=== PATIENT | male | born 1970 ===

== ENCOUNTER 2023-06-11 17:42 | Emergency (ER) | payer OTHER ==
[2023-06-11] MEDS ORDERED: amLODIPine 5 MG Tab PO ONE ×2 (19:07→19:09)
[2023-06-11] MEDS ORDERED: Take Home: Lisinopril 10 MG, 4 Tab Pack PO ONE (19:08)
[2023-06-11] MEDS ORDERED: Lisinopril 5 MG Tab PO ONE (19:08)
== END 2023-06-11 19:53 | disposition home or self-care (01) ==
LOC: SUPCPDRO 17:42 → LL.ED 17:42
DX: S01.01XA Laceration without foreign body of scalp, initial encounter (principal); I10 Essential (primary) hypertension; I25.2 Old myocardial infarction; I25.10 Atherosclerotic heart disease of native coronary artery without angina pectoris; F17.210 Nicotine dependence, cigarettes, uncomplicated; Z79.899 Other long term (current) drug therapy; Z90.49 Acquired absence of other specified parts of digestive tract; X58.XXXA Exposure to other specified factors, initial encounter; Y92.69 Other specified industrial and construction area as the place of occurrence of the external cause; Y99.0 Civilian activity done for income or pay
CPT/HCPCS: 12001; 99283; A9270-GY